=== PATIENT | female | born 1975 | race Asian ===

== ENCOUNTER 2024-07-18 13:29 | Outpatient (AMB) | payer MEDICAID, SELFPAY ==
--- NOTE | 2024-07-18 13:47 | HO.SPINEOV ---
Intake Visit Reasons: cervical spinal stenosis Intake Note: Ms. Kenney is here today c/o neck pain. Salesperson [employer] Required: Yes [employer]person [employer] Name: Tablet Allergies No Known Allergies Allergy (Verified 07/18/24 13:51) Assessment & Plan Assessment & Plan (1) Cervicalgia: Code(s): M54.2 - Cervicalgia Category: Medical Plan Patient left without being seen, will bring additional images next Thursday @ 1:00pm for subsequent apointment. This was confirmed with the use of spanish medical interpreter services. Coding Level of Care Code Global (17254) Diagnoses Cervicalgia M54.2
== END 2024-07-18 14:25 | disposition home or self-care (01) ==
PROVIDERS: PCP Internal Medicine; Referring Provider Physician Assistant; Visit Provider Physician Assistant
DX: M54.2 Cervicalgia (principal)
CPT/HCPCS: 99024

== ENCOUNTER → 2024-07-18 13:29 | Outpatient (BNVA) | payer MEDICAID, SELFPAY | PROVIDERS: PCP Internal Medicine; Visit Provider Physician Assistant | DX: M54.2 Cervicalgia (principal) | CPT/HCPCS: 99212 ==

== ENCOUNTER 2024-07-25 12:57 | Outpatient (AMB) | payer MEDICAID, SELFPAY ==
--- NOTE | 2024-07-25 13:05 | HO.SPINEOV ---
Intake Visit Reasons: Follow up with disc Intake Note: Mrs. Kenney is here today for a f/u. Apartment Leasing Consultant Required: Yes Apartment Leasing Consultant Name: Tablet Allergies No Known Allergies Allergy (Verified 07/18/24 13:51) Assessment & Plan Assessment & Plan (1) Cervicalgia: Code(s): M54.2 - Cervicalgia Category: Medical Plan Dear JIM Hernandez, Thank you for referring Shane to our office today. She is a pleasant 49-year-old female who comes in today with a chief complaint of neck pain with radiation into her bilateral upper extremities. She states it has gotten so bad that she is unable to sleep at night due to the pain. She finds herself moving around and constantly rearranging her pillows throughout the night to try and relieve her neck pain. She is unable to identify any inciting incident, but does state that it started about 2-3 years ago and has worsened over the last few months. When describing the radiation of pain she states it predominantly shoots into her bilateral shoulders, terminating near the base of the deltoid. However, in addition to this she feels pain shooting down her ventral forearms. She is unable to identify an arm that is ?worse and feels they are both significantly affected. In addition to this she reports numbness and tingling in her bilateral hands, with difficulties with hand hepatologist strength, and states she is unable to complete basic ADLs without dexterity issues. She has also been having some balance issues, and feels like she is too weak to walk outside/around her home. She denies any issues with bowel/bladder incontinence. PMH: Patient reports no previous surgeries. Hypertension, hyperlipidemia, GERD. Social hx: Patient smokes 1/2 pack cigarettes per day. Denies any alcohol use. Medications: Omeprazole, atorvastatin, ramipril, amlodipine. Allergies: NKDA. Physical exam: True strength testing is difficult to assess due to patient's disclosed pain. She has 5/5 strength dorsiflexion and plantar flexion. She has at least 3/5 strength with knee extension & hip flexion. She has 4/5 strength with hand hepatologist and interossei testing. I will also write her biceps/triceps strength as 4/5. Her shoulder shrug and deltoid strength is 3/5 at best due to pain. She has hypoesthesia of her bilateral hands, the rest of her sensation is intact. Her reflexes are 2+ intact, but she elicits pain even to being tested with a reflex hammer. (+) Tinel's at the wrist bilaterally, (-) Lhermitte's, (-) Baldwin's, (-) clonus, (-) Babinski's, (-) bilateral straight leg raise. Imaging review: At C4-5 there is endplate edema, ddd, and evidence of a prior disc herniation with osteophyte growth there is effacement of the anterior surface of the spinal cord without any notable signal change. At C6-7 there is also endplate edema and ddd, with some posterior disc bulging, causing only mild central canal / foraminal stenosis. Impression: Shane is a pleasant 49-year-old female who comes into our office today as a referral from [facility]. She is in obvious agony on exam. She has a very poor quality of life overall, is unable to sleep at night, and is unable to complete her basic ADLs such as cooking/cleaning and caring for herself. She has attempted several forms of conservative treatment including physical therapy, [id number] medications, and prescription pain relief. She is now to the point where she seeking some kind of permanent surgical solution for her current state. Although she presents without myelopathic reflexes she does have a radicular pain that is in the dermatomal distribution matching C4-5, and also has notable proximal muscle weakness. This is something that Dr. Wilkes typically would treat with a C4-5 ACDF. She understands that this would primarily be to treat her neck pain with radicular symptoms; not to treat her lower extremity symptoms or her handnumbness, which is likely a separate issue (carpal tunnel). We discussed the possibility of doing this, and while I had a Frisian fitness coordinator available I also discussed the risks/benefits of this procedure with the patient. I informed her that before we consider this surgery we would need to obtain her medical records from her primary care physician, and I will need to present this case to Dr. Wilkes who will make the final surgical decision. Shane was given risk and benefits of surgery including but not limited to infection, hematoma, nerve injury, durotomy, weakness, bowel/bladder injury, persistent pain, as well as the option to continue with conservative treatment and patient wishes to proceed with surgery. They are aware they should stop NSAIDs 7 days prior to surgery. All questions were answered to the best of our ability. If there is anything about this patients medical history that we have overlooked or concerns you have about us proceeding with surgery we would appreciate any input you can offer. Thank you for allowing us to care for your patient. The total time spent with this visit with this patient was 65 minutes reviewing history, physical exam, MRI imaging review, and implementation of treatment plan or further diagnostic testing. Danielito Wilkes MD,PhD [facility] Coding Level of Care Code New Pt Level 5 (26320) Diagnoses Cervicalgia M54.2
== END 2024-07-25 14:05 | disposition home or self-care (01) ==
PROVIDERS: PCP Internal Medicine; Visit Provider Physician Assistant
DX: M54.2 Cervicalgia (principal)
CPT/HCPCS: 99205

== ENCOUNTER → 2024-07-25 12:57 | Outpatient (BNVA) | payer MEDICAID, SELFPAY | PROVIDERS: PCP Internal Medicine; Visit Provider Physician Assistant | DX: M54.2 Cervicalgia (principal); Z79.899 Other long term (current) drug therapy | CPT/HCPCS: 99212 ==